=== PATIENT | female | born 1940 | race Caucasian/White ===

== ENCOUNTER → 2019-01-06 | Outpatient (CLI) | payer MEDICARE ==
[~2019-01-06] MED LIST: FOSA70TA PO; HYDR25TAB PO; LISI-672 PO; LOVA40TA PO; METF500T13 PO; PROP10TA56 PO
[2019-01-06 11:45] LABS: HEMATOCRIT 38.3 % (36.0-47.0); HEMOGLOBIN 12.6 g/dl (12.0-15.5); MEAN CORPUSCULAR HEMOGLOBIN 29.2 pg (27.0-33.0); MEAN CORPUSCULAR HGB CONC 32.9 g/dl (32.0-36.5); MEAN CORPUSCULAR VOLUME 88.9 fl (80.0-96.0); PLATELET COUNT, AUTOMATED 291 10^3/uL (150-450); RED BLOOD COUNT 4.31 10^6/uL (4.00-5.40); WHITE BLOOD COUNT 6.6 10^3/uL (4.0-10.0)
[2019-01-06 12:01] LABS: ALBUMIN 3.9 GM/DL (3.2-5.2); ALT/SGPT 24 U/L (12-78); BILIRUBIN,TOTAL 0.5 MG/DL (0.2-1.0); BLOOD UREA NITROGEN 19 MG/DL (7-18); CALCIUM LEVEL 9.3 MG/DL (8.8-10.2); CARBON DIOXIDE LEVEL 30 MEQ/L (21-32); CHLORIDE LEVEL 100 MEQ/L (98-107); CREATININE FOR GFR 0.83 MG/DL (0.55-1.30); GLOMERULAR FILTRATION RATE > 60.0 (>39); GLUCOSE, FASTING 91 MG/DL (70-100); POTASSIUM SERUM 3.9 MEQ/L (3.5-5.1); SODIUM LEVEL 139 MEQ/L (136-145); TOTAL PROTEIN 6.7 GM/DL (6.4-8.2)
[2019-01-06 12:04] LABS: INR 1.02; PROTHROMBIN TIME 13.5 SECONDS (12.1-14.4)
[2019-01-06 12:14] LABS: ERYTHROCYTE SEDIMENTATION RATE 22 mm/hr (0-30)
--- NOTE | 2019-01-06 12:27 | REP ---
Chest x-ray: Two views. History: Preoperative testing. Findings: The lungs are symmetrically aerated and free of infiltrate. Pleural angles are sharp. Heart size is normal. The aorta is calcific and somewhat tortuous. There are minimal degenerative changes in the thoracic spine. Pulmonary vasculature is not increased. Impression: No active disease. Electronically Signed by Guy Vo MD 01/06/2019 12:19 P
--- NOTE | 2019-01-07 17:32 | ECGEPIP ---
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
== END ==
LOC: M LAB 10:13
PROVIDERS: ATTEND Orthopaedic Surgery
DX: Z01.812 Encounter for preprocedural laboratory examination (principal); M16.11 Unilateral primary osteoarthritis, right hip

== ENCOUNTER 2019-01-24 05:57 | Inpatient (IN) | payer MEDICARE ==
--- NOTE | 2019-01-17 11:31 | HPE ---
DATE OF ANTICIPATED ADMISSION: 01/24/2019 ATTENDING PHYSICIAN: Dr. Tolu Diaz CHIEF COMPLAINT: Right hip pain and stiffness. HISTORY: This is a pleasant 78-year-old female patient with progressively worsening right hip pain and stiffness. She has failed to improve with conservative management and has elected for surgery for her continued symptoms. She has consented for right total hip arthroplasty by Dr. Diaz. ALLERGIES: No known drug allergies. CURRENT MEDICATIONS: - alendronate sodium 70 mg one by mouth weekly - Lisinopril 30 mg one by mouth daily - hydrochlorothiazide 25 mg one by mouth daily - propranolol 10 mg one by mouth twice a day - lovastatin 40 mg 1-1/2 by mouth daily - metformin 500 mg one by mouth twice a day PAST MEDICAL HISTORY: Central hypertension. Hyperlipidemia. Type 2 diabetes mellitus. Degenerative lumbar disc disease. History of malignant neoplasm of colon. Varicose veins of the lower extremity. Essential tremor. Osteoporosis. PAST SURGICAL HISTORY: Colonoscopy. Colon cancer surgery. FAMILY HISTORY: Father from Hodgkin lymphoma. Mother living, 98 years old. SOCIAL HISTORY: Patient is a nonsmoker, and rarely consumes alcohol. REVIEW OF SYSTEMS: Denies fever, chills, chest pain, shortness of breath, nausea, vomiting, diarrhea. Does report pain and stiffness in the right hip. PHYSICAL EXAM: Vital signs: Height 5 feet 4 inches, weight 190.8, temperature 98.8, blood pressure 145/72, pulse 64, respirations 16. She is normocephalic, atraumatic. Neck is supple and nontender with no lymphadenopathy or jugular venous distention (JVD). Lungs were clear to auscultation bilaterally with no wheezes, rales, rhonchi. S1 and S2 auscultated. Abdomen soft, nontender. Right hip with overlying skin intact. No erythema, ecchymosis, or rashes. She has tenderness to palpation in the groin area. The right lower extremity is neurovascularly intact and well perfused. EKG noted sinus rhythm with marked sinus arrhythmia and complete right bundle branch block, low QRS complex voltage in limb leads. EKG was repeated and reviewed by Dr. Wild. Chest x-ray with no acute cardiopulmonary processes. LABS: White blood count 6.6, red blood count 4.31, hemoglobin 12.6, hematocrit 38.3. BUN 19, creatinine 0.83. PT 13.5, INR 1.02. ESR 22. Preoperative medical optimization done by Dr. Wild and was available for review today on patient's chart. ASSESSMENT: Symptomatic right hip osteoarthritis. PLAN: Consented for right total hip arthroplasty by Dr. Diaz.
[~2019-01-24] VITALS: Ht 162.6 cm; Wt 86.2 kg
[~2019-01-24 05:57] MED LIST changes: +ACETAMINOPHEN 500 MG TAB PO ONE
[2019-01-24] MEDS ORDERED: LR 1,000 ML IV ONE (06:00)
[2019-01-24] MEDS ORDERED: ACETAMINOPHEN 500 MG TAB As Ordered ONE (06:24)
[2019-01-24] MEDS ORDERED: ceFAZolin 1GM INJ (J0690 PER 500MG) As Ordered ONE (07:11)
[2019-01-24] MEDS ORDERED: PROPOFOL 200 MG/20 ML VIAL As Ordered ONE (07:16)
[2019-01-24] MEDS ORDERED: MIDAZOLAM INJ 2 MG/2 ML VIAL (J2250) As Ordered ONE ×2 (07:16→08:19)
[2019-01-24] MEDS ORDERED: fentaNYL 100 MCG/2 ML INJECTION (J3010) As Ordered ONE (07:16)
[2019-01-24] MEDS ORDERED: BUPIVACAINE/DEXTROSE 0.75% 2 ML AMP As Ordered ONE (07:20)
[2019-01-24] MEDS ORDERED: GLYCOPYRROLATE INJ 0.2 MG/ML 2 ML VIAL As Ordered ONE (08:06)
[2019-01-24] MEDS ORDERED: MORPHINE 1MG/ML IN 0.9% NACL 100ML IV BAG As Ordered ONE (09:54)
[2019-01-24] MEDS ORDERED: fentaNYL 100 MCG/2 ML INJECTION (J3010) IV PRN ×2 (10:15→12:45)
[2019-01-24] MEDS ORDERED: FLEET ENEMA PR PRN (10:15)
[2019-01-24] MEDS ORDERED: ACETAMINOPHEN TAB 650MG DOSE (2X325MG) PO PRN (10:15)
[2019-01-24] MEDS ORDERED: LR 1,000 ML IV SCH ×2 (10:15→12:45)
[2019-01-24] MEDS ORDERED: diphenhydrAMINE INJ 50MG/ML VIAL (J1200) IV PRN (10:15)
[2019-01-24] MEDS ORDERED: NALOXONE INJ 0.4 MG/1 ML VIAL (J2310) IV PRN (10:15)
[2019-01-24] MEDS ORDERED: EPIDURAL/PCA KEYS XX PRN (10:15)
[2019-01-24] MEDS ORDERED: NALBUPHINE HCL 10 MG/ML AMP (J2300) IV PRN (10:15)
[2019-01-24] MEDS ORDERED: ONDANSETRON 4MG/2ML VIAL (J2405) IV PRN ×4 (10:15→13:45)
[2019-01-24] MEDS ORDERED: MORPHINE 1MG/ML IN 0.9% NACL 100ML IV BAG IV PRN (10:15)
--- NOTE | 2019-01-24 10:26 | REP ---
RIGHT HIP, TWO VIEWS: Two portable views of the right hip are performed. There is a total metallic hip prosthesis in good position. Osseous structures are intact. The structures are well aligned. Metallic skin alison are seen laterally. Electronically Signed by Helder Amaya MD 01/25/2019 10:06 A
[2019-01-24 12:00] VITALS: BP 141/69
[2019-01-24] MEDS: LR 1,000 ML IV SCH ×2 (12:00→16:49)
[2019-01-24 12:30] VITALS: BP 135/62
[2019-01-24 13:30] VITALS: BP 158/70
[2019-01-24] MEDS ORDERED: GLUCOSE 4 GM CHEW TABLET PO PRN (13:45)
[2019-01-24] MEDS ORDERED: DEXTROSE 50% 50 ML SYRINGE IV PRN (13:45)
[2019-01-24] MEDS ORDERED: GLUCAGON FOR INJ 1 MG VIAL (J1610) SC PRN (13:45)
[2019-01-24] MEDS ORDERED: ONDANSETRON 4MG/2ML VIAL (J2405) IV ONE (14:00)
[2019-01-24 14:30] VITALS: BP 140/62
[2019-01-24 15:30] VITALS: BP 143/82
[2019-01-24] MEDS: HumaLOG INSULIN (NovoLOG) PER UNIT SC SCH (18:10)
--- NOTE | 2019-01-24 18:54 | IPNPDOC ---
Text Note Date of Service The patient was seen on 01/24/19. NOTE Subjective: Patient is a 78-year-old female with a PMHx of HTN, DLP, DM2, Degenerative Lumbar Disc disease, Essential tremor, Varicose veins and osteopor osis , who presented to [facility] for an elective right total arthroplasty with Dr. Tolu Diaz. Patient was seen and examined at the bedside. Patient currently denies chest brett n, shortness of breath, palpitations, nausea, vomiting, abdominal pain. Has not yet had any bowel movements nor has she passed any gas. She denies any urinary discomfort. Objective: Vitals (See below) General: Lying in bed, no acute distress, comfortable, AAOx3 HEENT: NC, AT CVS: RRR, +S1S2 Lungs: Fair air entry b/l, -w/r/r Abdomen: Soft, ND, NT Extremities: - Edema, - Calf tenderness, right hip in dressing Assessment and plan: Right hip pain - s/p total right hip arthroplasty (POD#0) - Presented to [facility] for an elective right hip total arthroplasty with orthopedic surgery - Pain control 80 coagulation physical therapy at the [facility] orthopedic surgery HTN - Blood pressure appears to be well-controlled - Will continue with lisinopril and propranolol withholding parameters - Hydrochlorothiazide on hold DLP - c/w simvastatin DM2 - c/w ISS Degenerative Lumbar Disc disease Essential tremor Varicose veins Osteoporosis - Will hold weekly dosing of alendronate and resume as an outpatient DVT prophylaxis - As per orthopedic surgery VS,Fishbone, I+O VS, Fishbone, I+O Laboratory Tests 01/24/19 06:16 Vital Signs Date Time Temp Pulse Resp B/P (MAP) Pulse Ox O2 Delivery O2 Flow Rate FiO2 01/24/19 15:30 96.1 77 16 143/82 (102) 97 2.0 CHARISSA MATHIS MD Jan 24, 2019 18:54
--- NOTE | 2019-01-24 18:57 | RO ---
DATE OF PROCEDURE: 01/24/2019 PREPROCEDURE DIAGNOSIS: Right hip osteoarthritis. POSTPROCEDURE DIAGNOSIS: Right hip osteoarthritis. PROCEDURE: Right total hip arthroplasty using a size 6 [place]ac standard offset stem with a +5 neck, 36 mm head, 52 mm Gription cup, neutral liner. Prosthesis made by [employer]. SURGEON: Dex Diaz MD OVEREDGER: Mr. Leonard Guzman ANESTHESIA: Spinal. COMPLICATIONS: None. ESTIMATED BLOOD LOSS: 150 mL. SPECIMENS: Femoral head, as well as second specimen was a nodular hemorrhagic synovial tissue. FINDINGS: Had advanced arthritis, but also there was a very large volume of a synovial somewhat nodular and hemorrhagic mass within the joint that was sent for separate biopsy. DESCRIPTION OF PROCEDURE: Antibiotics were given intravenously preoperatively and then the successful spinal anesthetic was induced, and she was placed in the lateral decubitus position. Using the Lynn hip positioner, her operative side was up, down leg well padded, especially the peroneal nerve and axillary roll was utilized. The right hip area was then carefully prepped and draped in the usual sterile fashion. After appropriate time-out, a longitudinal incision was made for a direct anterolateral approach to the hip. Bovie cautery was used to coagulate crossing vessels down to the deep tensor fascia, which was divided in line with the skin incision. The anterior one-third, posterior two-thirds of the gluteus medius was split, then dissected down through the gluteus minimus and the anterior hip capsule, and then carefully dissecting off anteriorly and proximally over the greater trochanter as we externally rotated and eventually dislocated the hip. Piriformis fossa was identified. The starter reamer was placed, followed by the canal finding reamer and then we reamed up to a size 6. Proximal femoral neck osteotomy performed using the template as a guide, and we broached up to a size 6. We then exposed the acetabulum and noted that there was a large mass within the acetabulum with hemorrhagic and cystic-type nodular tissue, and this was excised and sent for a separate specimen. Labral excision was performed, then we began reaming, beginning at 46 up to 51, trial 52 fit nicely, using the guide, and then I felt that the 52 Gription cup with holes, in case we needed screw fixation, was required and thus, this was opened. After we copiously irrigated out, we instilled the cup into the acetabulum using the extramedullary guide to help set our version and abduction. Excellent fixation was felt to have been obtained. I did not feel I needed supplementary screw fixation. Central hole eliminator was placed, we irrigated again, placed the neutral 36 liner. We then irrigated out the femoral canal, placed the #6 broach, trialed with a +1.5 with a 36 mm standard offset head and neck combination, brought it through a range of motion. She was very stable to flexion internal rotation and extension external rotation. However, she did have a little bit of increased telescoping or play; thus I felt the +5 would be appropriate. Thus, we removed the trial components, copiously irrigated out again, placed the standard #6 [place]ac stem, and then dried the trunnion, placed the +5 neck with a 36 mm ball, reduced the hip, irrigated out the hip joint again. Then, closed the anterior hip capsule and gluteus minimus back anatomically with interrupted #1 PDS sutures. The gluteus medius was then repaired back anatomically with interrupted #1 PDS sutures, irrigating between layers, closed the tensor fascia with a combination of #1 PDS suture and a running #1 Stratafix, irrigated again. Then, closed the deep subdermal tissues with interrupted #2-0 PDS sutures, skin was closed with alison, covered by an Optifoam and a dry sterile bulky dressing. She was then turned supine and transferred to the recovery room in stable condition. There were no intraoperative complications. Mr. Yunior Guzman was critical to the success of this difficult surgery by helping to manipulate the leg in and out of the leg bag anteriorly, helped to dislocate and relocate the hip, helped with appropriate soft tissue retraction, helped to close the wound, helped to prepare the patient and position the patient on the operating room table amongst many other tasks, helped me perform the operation smoothly and efficiently and safely.
[2019-01-24] MEDS: PROPRANOLOL 10 MG TAB PO SCH (20:37)
[2019-01-24] MEDS ORDERED: HumaLOG INSULIN (NovoLOG) PER UNIT SC SCH (21:00)
[2019-01-24] MEDS ORDERED: SIMVASTATIN 40 MG TAB PO SCH (21:00)
[2019-01-25 02:00] VITALS: BP 148/72
[2019-01-25 06:00] VITALS: BP 168/74
[2019-01-25] MEDS ORDERED: PERCOCET 5MG/325MG TAB PO PRN ×2 (06:15)
[2019-01-25] MEDS ORDERED: ONDANSETRON 4 MG TAB (S0181) PO PRN (06:15)
[2019-01-25 07:16] LABS: HEMATOCRIT 28.2 % (36.0-47.0); HEMOGLOBIN 9.5 g/dl (12.0-15.5); MEAN CORPUSCULAR HEMOGLOBIN 29.6 pg (27.0-33.0); MEAN CORPUSCULAR HGB CONC 33.7 g/dl (32.0-36.5); MEAN CORPUSCULAR VOLUME 87.9 fl (80.0-96.0); PLATELET COUNT, AUTOMATED 167 10^3/uL (150-450); RED BLOOD COUNT 3.21 10^6/uL (4.00-5.40); WHITE BLOOD COUNT 6.8 10^3/uL (4.0-10.0)
[2019-01-25 07:33] LABS: INR 1.14; PROTHROMBIN TIME 14.8 SECONDS (12.1-14.4)
[2019-01-25 07:43] LABS: BLOOD UREA NITROGEN 13 MG/DL (7-18); CALCIUM LEVEL 7.9 MG/DL (8.8-10.2); CARBON DIOXIDE LEVEL 28 MEQ/L (21-32); CHLORIDE LEVEL 99 MEQ/L (98-107); CREATININE FOR GFR 0.69 MG/DL (0.55-1.30); GLOMERULAR FILTRATION RATE > 60.0 (>39); GLUCOSE, FASTING 148 MG/DL (70-100); MAGNESIUM LEVEL 1.5 MG/DL (1.8-2.4); POTASSIUM SERUM 3.3 MEQ/L (3.5-5.1); SODIUM LEVEL 134 MEQ/L (136-145)
[2019-01-25] MEDS ORDERED: XARE10TA PO (08:10)
[2019-01-25] MEDS ORDERED: PERC5TAB12 PO (08:10)
[2019-01-25 08:23] VITALS: BP 168/74
[2019-01-25] MEDS: PROPRANOLOL 10 MG TAB PO SCH (08:23)
[2019-01-25] MEDS: HumaLOG INSULIN (NovoLOG) PER UNIT SC SCH ×2 (08:24→12:10)
[2019-01-25] MEDS ORDERED: MIRALAX *UNIT DOSE* 17GM PACKET PO SCH (09:00)
[2019-01-25] MEDS ORDERED: MAG SULF 1GM/100ML (MAG RUN) 1 GM in APPROPRIATE DILUENT 1 EA IV ONE (09:00)
[2019-01-25] MEDS ORDERED: MOM 30ML SUSPENSION UDC PO SCH (09:00)
[2019-01-25] MEDS ORDERED: POTASSIUM CHLORIDE 10 MEQ SR TABLET PO SCH (09:00)
[2019-01-25] MEDS ORDERED: LISINOPRIL 10 MG TAB PO SCH (09:00)
[2019-01-25 10:00] VITALS: BP 164/86
--- NOTE | 2019-01-25 14:51 | IPNPDOC ---
Text Note Date of Service The patient was seen on 01/25/19. NOTE Subjective: Patient is a 78-year-old female with a PMHx of HTN, DLP, DM2, Degenerative Lumbar Disc disease, Essential tremor, Varicose veins and osteopor osis , who presented to [facility] for an elective right total arthroplasty with Dr. Tolu Diaz. Patient was seen and examined at the bedside. Patient indicates that she's still experiencing some pain of her right hip. She denies any chest pain, shortness of breath or palpitations. Denies nausea, vomiting, abdominal pain, constipation, diarrhea or discomfort with urination. Objective: Vitals (See below) General: Lying in bed, no acute distress, comfortable, AAOx3 HEENT: NC, AT CVS: RRR, +S1S2 Lungs: Fair air entry b/l, no evidence of wheezing, rales or rhonchi Abdomen: Soft, nondistended, without tenderness Extremities: No evidence of lower extremity edema, - Calf tenderness, right hip in dressing Assessment and plan: Right hip pain - s/p total right hip arthroplasty (POD#1) - Presented to [facility] for an elective right hip total arthroplasty with orthopedic surgery - Pain control, anticoagulation and physical therapy at the [facility] orthopedic surgery HTN - Blood pressure appears to be well-controlled - Will continue with lisinopril and propranolol withholding parameters - Hydrochlorothiazide on hold DLP - c/w simvastatin DM2 - c/w ISS Degenerative Lumbar Disc disease Essential tremor Varicose veins Osteoporosis - Will hold weekly dosing of alendronate and resume as an outpatient DVT prophylaxis - As per orthopedic surgery Disposition: - Awaiting PT clearance Sunshine NICHOLAS, I+O Sunshine NICHOLAS I+O Laboratory Tests 01/25/19 07:00 Red Blood Count 3.21 L, Mean Corpuscular Volume 87.9, Mean Corpuscular Hemoglobin 29.6, Mean Corpuscular Hemoglobin Concent 33.7, Red Cell Distribution Width 12.9, Calcium Level 7.9 L Vital Signs Date Time Temp Pulse Resp B/P (MAP) Pulse Ox O2 Delivery O2 Flow Rate FiO2 01/25/19 10:00 98.3 82 18 164/86 (112) 95 01/25/19 08:10 2.0 I&O- Last 24 Hours up to 6 AM 01/25/19 06:00 Intake Total 3730 ml Output Total 705 ml Balance 3025 ml CHARISSA MATHIS MD Jan 25, 2019 14:51
[2019-01-25] MEDS ORDERED: RIVAROXABAN 10 MG TAB (XARELTO) PO SCH (18:00)
== END 2019-01-25 13:20 | disposition home or self-care (01) | DRG 470 ==
LOC: M OR 05:57 → M MS5PR 11:55
PROVIDERS: ADMIT Orthopaedic Surgery; ATTEND Orthopaedic Surgery
PROC: 0SR90JA Replacement of Right Hip Joint with Synthetic Substitute, Uncemented, Open Approach (ICD-10-PCS; principal; 2019-01-24 07:30)
DX: M16.11 Unilateral primary osteoarthritis, right hip (principal); I10 Essential (primary) hypertension; E11.9 Type 2 diabetes mellitus without complications; Z79.899 Other long term (current) drug therapy; M51.26 Other intervertebral disc displacement, lumbar region; M81.0 Age-related osteoporosis without current pathological fracture; E78.5 Hyperlipidemia, unspecified; I83.90 Asymptomatic varicose veins of unspecified lower extremity; Z85.038 Personal history of other malignant neoplasm of large intestine

== ENCOUNTER → 2020-09-17 | Outpatient (REF) | payer MEDICARE ==
[~2020-09-17] MED LIST changes: -ACETAMINOPHEN 500 MG TAB PO ONE; +ASPI81TA86 PO; +AZO1CAP PO; +CALC500C16 PO; +HM P99TA PO; -LISI-672 PO; +LISI30TA4 PO; +LORA-674 PO; +MULTCAP PO; +PERC5TAB12 PO; +RA N1TAB PO; +VITA100024 PO; +XARE10TA PO
[2020-09-17 17:51] LABS: ALBUMIN 4.1 GM/DL (3.2-5.2); ALT/SGPT 25 U/L (12-78); BILIRUBIN,TOTAL 0.5 MG/DL (0.2-1.0); BLOOD UREA NITROGEN 15 MG/DL (7-18); CALCIUM LEVEL 9.7 MG/DL (8.8-10.2); CARBON DIOXIDE LEVEL 32 MEQ/L (21-32); CHLORIDE LEVEL 103 MEQ/L (98-107); CREATININE FOR GFR 0.86 MG/DL (0.55-1.30); GLOMERULAR FILTRATION RATE > 60.0 (>39); GLUCOSE, FASTING 88 MG/DL (70-100); POTASSIUM SERUM 4.1 MEQ/L (3.5-5.1); SODIUM LEVEL 141 MEQ/L (136-145); TOTAL PROTEIN 7.3 GM/DL (6.4-8.2)
[2020-09-17 17:59] LABS: BASO # 0.1 10^3/uL (0.0-0.2); EOS # 0.2 10^3/uL (0.0-0.5); EOS % 3.6 % (0.0-3.0); HEMATOCRIT 40.5 % (36.0-47.0); HEMOGLOBIN 13.1 g/dl (12.0-15.5); LYMPH # 1.4 10^3/uL (1.5-5.0); LYMPH % 22.6 % (24.0-44.0); MEAN CORPUSCULAR HEMOGLOBIN 30.3 pg (27.0-33.0); MEAN CORPUSCULAR HGB CONC 32.3 g/dl (32.0-36.5); MEAN CORPUSCULAR VOLUME 93.8 fl (80.0-96.0); MONO # 0.5 10^3/uL (0.0-0.8); MONO % 8.5 % (0.0-5.0); NEUTROPHILS # 3.9 10^3/uL (1.5-8.5); PLATELET COUNT, AUTOMATED 262 10^3/uL (150-450); RED BLOOD COUNT 4.32 10^6/uL (4.00-5.40); WHITE BLOOD COUNT 6.1 10^3/uL (4.0-10.0)
[2020-09-17 18:06] LABS: HEMOGLOBIN A1c 5.4 %
[2020-09-17 18:22] LABS: CREATININE, URINE 39.6 MG/DL; MALB URINE SIEMENS 5.1 MG/L; MAU/CREAT RATIO 12.8 MCG/MG (0.0-30.0)
== END ==
LOC: M LAB REF 16:30
PROVIDERS: ATTEND Physician Assistant
DX: E78.5 Hyperlipidemia, unspecified (principal); E11.9 Type 2 diabetes mellitus without complications; Z85.038 Personal history of other malignant neoplasm of large intestine

== ENCOUNTER → 2022-01-01 | Outpatient (CLI) | payer MEDICARE ==
[~2022-01-01] MED LIST changes: +ATOR40TA75 PO; -HM P99TA PO; +HYDR-3490 PO; -HYDR25TAB PO; +LISI40TA4 PO; +POTA99TA14 PO
== END ==
LOC: M LABSMTC 09:10
PROVIDERS: ATTEND Anesthesiology
DX: Z11.52 Encounter for screening for COVID-19 (principal)

== ENCOUNTER 2022-01-06 07:13 | Day surgery (SDC) | payer MEDICARE ==
[~2022-01-06] VITALS: Ht 162.6 cm; Wt 84.5 kg
[~2022-01-06 07:13] MED LIST changes: +LIDOCAINE 2% 100MG/5ML SDV (FOR ANES.) As Ordered ONE; +NS 1,000 ML IV ONE; +propofoL 200 MG/20 ML VIAL As Ordered ONE
[2022-01-06] MEDS ORDERED: ePHEDrine SULFATE 25 MG/5 ML(5MG/ML) SYRINGE As Ordered ONE (09:00)
[2022-01-06] MEDS ORDERED: propofoL 200 MG/20 ML VIAL As Ordered ONE (09:25)
[2022-01-06] MEDS ORDERED: PHENYLephrine 500MCG 5ML (100MCG/ML) SYRINGE As Ordered ONE (09:49)
[2022-01-06 10:10] VITALS: BP 130/82
== END 2022-01-06 10:23 | disposition home or self-care (01) ==
LOC: M OPP 07:13
PROVIDERS: ATTEND Surgery
DX: Z12.11 Encounter for screening for malignant neoplasm of colon (principal); Z85.038 Personal history of other malignant neoplasm of large intestine; K63.5 Polyp of colon; K57.30 Diverticulosis of large intestine without perforation or abscess without bleeding; K64.8 Other hemorrhoids; Z98.0 Intestinal bypass and anastomosis status; I10 Essential (primary) hypertension; E11.9 Type 2 diabetes mellitus without complications; Z92.21 Personal history of antineoplastic chemotherapy; Z79.899 Other long term (current) drug therapy; Z79.84 Long term (current) use of oral hypoglycemic drugs
CPT/HCPCS: 45385; 88305; J2370

== ENCOUNTER → 2022-07-16 | Outpatient (CLI) | payer MEDICARE ==
[~2022-07-16] MED LIST changes: +ALEN70TA87 PO; -FOSA70TA PO; -LIDOCAINE 2% 100MG/5ML SDV (FOR ANES.) As Ordered ONE; -NS 1,000 ML IV ONE; +VITMTA PO; -propofoL 200 MG/20 ML VIAL As Ordered ONE
== END ==
LOC: M LABSMTC 09:50
PROVIDERS: ATTEND Anesthesiology
DX: Z01.818 Encounter for other preprocedural examination (principal); Z11.52 Encounter for screening for COVID-19

== ENCOUNTER 2022-07-21 11:49 | Day surgery (SDC) | payer MEDICARE ==
[~2022-07-21] VITALS: Ht 162.6 cm; Wt 86.5 kg
[~2022-07-21 11:49] MED LIST changes: +NS 1,000 ML IV ONE
[2022-07-21] MEDS ORDERED: LIDOCAINE 2% 100MG/5ML SDV (FOR ANES.) As Ordered ONE (12:20)
[2022-07-21] MEDS ORDERED: propofoL 200 MG/20 ML VIAL As Ordered ONE ×2 (12:20→14:46)
[2022-07-21 15:02] VITALS: BP 159/70
== END 2022-07-21 15:15 | disposition home or self-care (01) ==
LOC: M OPP 11:49
PROVIDERS: ATTEND Surgery
DX: D12.0 Benign neoplasm of cecum (principal); D12.2 Benign neoplasm of ascending colon; D12.3 Benign neoplasm of transverse colon; D12.4 Benign neoplasm of descending colon; Z86.010 Personal history of colon polyps; Z09 Encounter for follow-up examination after completed treatment for conditions other than malignant neoplasm; Z85.038 Personal history of other malignant neoplasm of large intestine; Z92.21 Personal history of antineoplastic chemotherapy; Z90.49 Acquired absence of other specified parts of digestive tract; Z80.7 Family history of other malignant neoplasms of lymphoid, hematopoietic and related tissues; Z79.02 Long term (current) use of antithrombotics/antiplatelets; Z79.899 Other long term (current) drug therapy; E11.9 Type 2 diabetes mellitus without complications; I10 Essential (primary) hypertension; E78.5 Hyperlipidemia, unspecified

== ENCOUNTER → 2022-10-20 | Outpatient (REF) | payer MEDICARE ==
[~2022-10-20] MED LIST changes: -NS 1,000 ML IV ONE
[2022-10-20 18:57] LABS: BLOOD UREA NITROGEN 24 MG/DL (9-23); CALCIUM LEVEL 8.9 MG/DL (8.3-10.6); CARBON DIOXIDE LEVEL 26 MMOL/L (20-31); CHLORIDE LEVEL 103 MMOL/L (98-107); CHOLESTEROL LEVEL 135 MG/DL (<200); CREATININE FOR GFR 0.87 MG/DL (0.55-1.30); GLOMERULAR FILTRATION RATE > 60.0 (>39); GLUCOSE, FASTING 117 MG/DL (74-106); HDL CHOLESTEROL 39.6 MG/DL (>40); NON-HDL-C 95 MG/DL; POTASSIUM SERUM 3.9 MMOL/L (3.5-5.1); SODIUM LEVEL 139 MMOL/L (136-145); TRIGLYCERIDES LEVEL 433 MG/DL (<150)
[2022-10-20 21:15] LABS: HEMOGLOBIN A1c 5.8 % (4.0-6.0)
== END ==
LOC: M LAB REF 16:31
PROVIDERS: ATTEND Pediatrics
DX: E78.5 Hyperlipidemia, unspecified (principal); I10 Essential (primary) hypertension; E66.9 Obesity, unspecified; Z79.899 Other long term (current) drug therapy

== ENCOUNTER → 2023-01-06 | Outpatient (REF) | payer MEDICARE | LOC: M LAB REF 16:36 | PROVIDERS: ATTEND Pediatrics | DX: R30.0 Dysuria (principal) ==

== ENCOUNTER → 2023-06-08 | Outpatient (REF) | payer MEDICARE ==
[2023-06-08 18:36] LABS: HEMOGLOBIN A1c 5.6 % (4.0-6.0)
[2023-06-08 19:00] LABS: ALBUMIN 4.5 G/DL (3.2-5.2); ALKALINE PHOSPHATASE 60 U/L (46-116); ALT/SGPT 19 U/L (7.0-40); AST/SGOT 14 U/L (<34); BILIRUBIN,TOTAL 0.6 MG/DL (0.3-1.2); BLOOD UREA NITROGEN 17 MG/DL (9-23); CALCIUM LEVEL 9.9 MG/DL (8.3-10.6); CARBON DIOXIDE LEVEL 30 MMOL/L (20-31); CHLORIDE LEVEL 101 MMOL/L (98-107); CHOLESTEROL LEVEL 131 MG/DL (<200); CHOLESTEROL RISK RATIO 2.73 (<5); CREATININE FOR GFR 0.75 MG/DL (0.55-1.30); GLOMERULAR FILTRATION RATE > 60.0 (>32); GLUCOSE, FASTING 86 MG/DL (74-106); HDL CHOLESTEROL 47.9 MG/DL (>40); LDL CHOLESTEROL 40.1 MG/DL (<100); NON-HDL-C 83.1 MG/DL; POTASSIUM SERUM 4.4 MMOL/L (3.5-5.1); SODIUM LEVEL 139 MMOL/L (136-145); THYROID STIMULATING HORMONE 3.028 uIU/ML (0.55-4.78); TRIGLYCERIDES LEVEL 215 MG/DL (<150)
== END ==
LOC: M LAB REF 17:55
PROVIDERS: ATTEND Pediatrics
DX: E78.5 Hyperlipidemia, unspecified (principal); R73.03 Prediabetes

== ENCOUNTER 2023-11-04 09:53 | Day surgery (SDC) | payer MEDICARE ==
[~2023-11-04] VITALS: Ht 162.6 cm; Wt 83.6 kg
[~2023-11-04 09:53] MED LIST changes: +ALEN70TA82; +LIDOCAINE 2% 100MG/5ML SDV (FOR ANES.) As Ordered ONE; +LORA-1041 PO; -LORA-674 PO; +propofoL 200 MG/20 ML VIAL As Ordered ONE
[2023-11-04] MEDS: NS 1,000 ML IV ONE (10:09)
[2023-11-04 12:15] VITALS: BP 149/69; TEMP 96.8; O2SAT 97
== END 2023-11-04 12:18 | disposition home or self-care (01) ==
LOC: M OPP 09:53
PROVIDERS: ATTEND Surgery
DX: Z12.11 Encounter for screening for malignant neoplasm of colon (principal); D12.2 Benign neoplasm of ascending colon; D12.3 Benign neoplasm of transverse colon; D12.4 Benign neoplasm of descending colon; Z86.010 Personal history of colon polyps; Z85.038 Personal history of other malignant neoplasm of large intestine; Z90.49 Acquired absence of other specified parts of digestive tract; E11.9 Type 2 diabetes mellitus without complications; I10 Essential (primary) hypertension; Z79.899 Other long term (current) drug therapy; E78.00 Pure hypercholesterolemia, unspecified; Z92.21 Personal history of antineoplastic chemotherapy

== ENCOUNTER → 2024-03-20 | Outpatient (REF) | payer MEDICARE ==
[~2024-03-20] MED LIST changes: -LIDOCAINE 2% 100MG/5ML SDV (FOR ANES.) As Ordered ONE; -propofoL 200 MG/20 ML VIAL As Ordered ONE
[2024-03-20 14:21] LABS: BLOOD UREA NITROGEN 17 MG/DL (9-23); CALCIUM LEVEL 9.5 MG/DL (8.3-10.6); CARBON DIOXIDE LEVEL 30 MMOL/L (20-31); CHLORIDE LEVEL 105 MMOL/L (98-107); CHOLESTEROL LEVEL 140 MG/DL (<200); CHOLESTEROL RISK RATIO 3.05 (<5); CREATININE FOR GFR 0.72 MG/DL (0.55-1.30); GLOMERULAR FILTRATION RATE > 60.0 (>32); GLUCOSE, FASTING 130 MG/DL (74-106); HDL CHOLESTEROL 45.9 MG/DL (>40); LDL CHOLESTEROL 65.1 MG/DL (<100); NON-HDL-C 94.1 MG/DL; POTASSIUM SERUM 5.9 MMOL/L (3.5-5.1); SODIUM LEVEL 139 MMOL/L (136-145); TOTAL 25(OH) VITAMIN D 78.3 NG/ML (20.0-100.0); TRIGLYCERIDES LEVEL 145 MG/DL (<150)
[2024-03-20 14:41] LABS: CREATININE, URINE 65.7 MG/DL; MALB URINE SIEMENS < 3.0 MG/L; MAU/CREAT RATIO 4.5 MCG/MG (0.0-30.0)
== END ==
LOC: M LAB REF 12:54
PROVIDERS: ATTEND Pediatrics
DX: I10 Essential (primary) hypertension (principal); E78.5 Hyperlipidemia, unspecified; M81.0 Age-related osteoporosis without current pathological fracture

== ENCOUNTER → 2025-01-03 | Outpatient (REF) | payer MEDICARE ==
[2025-01-03 13:52] LABS: CREATININE, URINE 21.2 MG/DL
[2025-01-03 13:53] LABS: MALB URINE SIEMENS < 3.0 MG/L
[2025-01-03 15:35] LABS: ALBUMIN 4.2 G/DL (3.2-5.2); ALKALINE PHOSPHATASE 59 U/L (35-104); ALT/SGPT 23 U/L (7.0-40); AST/SGOT 21 U/L (<34); BILIRUBIN,TOTAL 0.7 MG/DL (0.3-1.2); BLOOD UREA NITROGEN 16 MG/DL (9-23); CALCIUM LEVEL 9.8 MG/DL (8.3-10.6); CARBON DIOXIDE LEVEL 30 MMOL/L (20-31); CHLORIDE LEVEL 101 MMOL/L (98-107); CHOLESTEROL LEVEL 136 MG/DL (<200); CHOLESTEROL RISK RATIO 2.63 (<5); CREATININE FOR GFR 0.75 MG/DL (0.55-1.30); GLOMERULAR FILTRATION RATE > 60.0 (>32); GLUCOSE, FASTING 101 MG/DL (74-106); HDL CHOLESTEROL 51.6 MG/DL (>40); LDL CHOLESTEROL 56.6 MG/DL (<100); NON-HDL-C 84.4 MG/DL; POTASSIUM SERUM 4.1 MMOL/L (3.5-5.1); SODIUM LEVEL 140 MMOL/L (136-145); TOTAL PROTEIN 7.2 G/DL (5.7-8.2); TRIGLYCERIDES LEVEL 139 MG/DL (<150)
[2025-01-03 15:37] LABS: THYROID STIMULATING HORMONE 2.809 uIU/ML (0.55-4.78)
== END ==
LOC: M LAB REF 12:34
PROVIDERS: ATTEND Pediatrics
DX: I10 Essential (primary) hypertension (principal); E78.5 Hyperlipidemia, unspecified; M81.0 Age-related osteoporosis without current pathological fracture